=== PATIENT | male | born 1965 | race Caucasian/White ===

== ENCOUNTER 2017-01-18 11:42 | Day surgery (SDC) | payer OTHER ==
[~2017-01-18] VITALS: Ht 165.1 cm; Wt 71.1 kg
[~2017-01-18 11:42] MED LIST: IBUP-1542 PO; LORA10CA PO; PROM118S PO
[2017-01-18 12:57] VITALS: Ht 165.1 cm; Wt 71.1 kg
[2017-01-18] MEDS ORDERED: METF500T4 PO (13:04)
[2017-01-18 13:35] VITALS: BP 158/84; PULSE 65; RESP 16
--- NOTE | 2017-01-18 15:03 | GILP ---
DATE OF PROCEDURE: 01/18/2017 PROCEDURE: Colonoscopy. PREOPERATIVE DIAGNOSIS: Screening colonoscopy to rule out colon polyps. POSTOPERATIVE DIAGNOSES: 1. Occasional diverticula noted in the colon which is not bleeding. 2. Minimal external hemorrhoids. 3. No polyps noted. DESCRIPTION OF PROCEDURE: After informed written consent was obtained, the patient was asked to lie on the left lateral side, 3 mg Versed and 50 mcg of fentanyl were given as intravenous anesthesia. Examination included showing diverticulosis on the way out, no additional abnormalities except exte rnal hemorrhoids, and the procedure was terminated. When the patient became somnolent, the Olympus v ideo colonoscope was introduced into the rectum and scope was advanced all the way to the cecum. Mi nimal diverticulosis was noted and no diverticulitis. No polyps noted. On the way out, further julissa luation was carried out. Minimal external hemorrhoids were noted and the procedure was terminated. PLAN: Recommend repeat colonoscopy in 10 years. Dictated By: HOLA BUSH MD NC/NTS Conf#: [id number] DID#: [id number] CC: HOAL BUSH MD;*EndCC*
[2017-01-18] MEDS ORDERED: FENTAnyl 50 MCG/ML VIAL ONE (15:04)
[2017-01-18] MEDS ORDERED: MIDAZOLAM 1 MG/ML 2 ML INJ ONE ×2 (15:04)
[2017-01-18 15:25] VITALS: BP 119/68; PULSE 60; RESP 12
== END 2017-01-18 17:31 | disposition home or self-care (01) ==
LOC: GIL 11:42
PROVIDERS: ATTEND Internal Medicine Gastroenterology
DX: Z12.11 Encounter for screening for malignant neoplasm of colon (principal); K64.4 Residual hemorrhoidal skin tags; E11.9 Type 2 diabetes mellitus without complications
CPT/HCPCS: 45378; 82962; J2250; J3010; Z7610